=== PATIENT | female | born 1965 | race Caucasian/White ===

== ENCOUNTER 2020-09-25 14:53 | Emergency (ER) | payer OTHER, SELFPAY ==
--- NOTE | ~2020-09-25 | XR_ITS ---
XR chest 1V portable DATE: 09/25/2020 16:12 INDICATION: Syncope TECHNIQUE: Portable upright AP chest on 09/25/2020 at 1623 hours COMPARISON: None FINDINGS: Normal heart size. No hilar or mediastinal enlargement. Mild infiltrate, atelectasis or pulmonary mass density (or densities) of right mid lung. There is mild infiltrate or atelectasis at the lung bases. No pleural effusion or pulmonary vascular congestion or pneumothorax. Posterior cervical spine surgical fusion. Osteopenia. Degenerative spurring of the thoracic spine. IMPRESSION: Mild infiltrate or mass density (densities) of right midlung Mild bibasilar infiltrate or atelectasis Reviewed, dictated and finalized at location A.
[2020-09-25 15:04] VITALS: BP 108/71; PULSE 101; RESP 20; TEMP 36.7; O2SAT 90
[2020-09-25 15:44] LABS: Basophils Absolute Auto 0.05 K/mm3 (0.00-0.10); Basophils Percent Auto 0.3 % (0.0-1.0); Eosinophils Percent Auto 0.6 % (1.0-6.0); Hemoglobin 13.1 g/dL (12.0-15.0); Immature Granulocyte Absolute 0.12 K/mm3 (0.00-0.00); Immature Granulocyte Percent A 0.8 % (0.0-0.0); Lymphocytes Absolute Auto 3.74 K/mm3 (1.10-4.50); Lymphocytes Percent Auto 23.9 % (18.0-42.0); Mean Corpuscular Hemoglobin 29.3 pg (27.0-31.0); Mean Corpuscular Volume 91.7 fL (78.0-102.0); Mean Platelet Volume 9.3 fl (9.2-11.8); Monocytes Absolute Auto 1.25 K/mm3 (0.10-0.90); Neutrophils Absolute Auto 10.4 K/mm3 (1.7-7.2); Neutrophils Percent Auto 66.4 % (50.0-70.0); Platelet Count Result 290 K/mm3 (150-420); Red Blood Count 4.47 M/mm3 (4.20-5.40); Red Cell Distribution Width 13.2 % (11.6-14.4); White Blood Count 15.7 K/mm3 (4.8-10.8)
[2020-09-25] MEDS: KETOROLAC 30 MG/ML VIAL (*BKC) IV PUSH (15:45)
[2020-09-25 15:53] LABS: Add Urine Microscopic? YES; Appearance Urine Clear (Clear); Bilirubin Urine Negative (Negative); Blood Urine Negative (Negative); Color Urine Yellow (Yellow); Glucose Urine UA Negative (Negative); Ketones Urine Negative (Negative); Leukocyte Esterase Ur Negative LEU/UL (Negative); Nitrate Urine Negative (Negative); Protein Urine Trace (Negative); Specific Grav Ur >= 1.030 (1.010-1.020); Urobilinogen Urine 0.2 mg/dL (0.2-1.0)
[2020-09-25 15:56] LABS: Bacteria Urine None seen /hpf; Mucus Urine Few /lpf; RBC Urine None seen /hpf (0-2); Squamous Epithelial Cell Urine Rare /hpf (Few); WBC Urine None seen /hpf (0-3)
[2020-09-25 15:59] LABS: Alanine Aminotransferase 25 U/L (14-59); Albumin Level 2.7 g/dL (3.4-5.0); Alkaline Phosphatase 115 U/L (46-116); Anion Gap 8 mmol/L (8-16); Aspartate Amino Transferase 12 U/L (15-37); Bilirubin,Total 0.2 mg/dL (0.00-1.00); Blood Urea Nitrogen 11 mg/dL (7-18); Calcium 8.6 mg/dL (8.5-10.1); Carbon Dioxide 30 mmol/L (21-32); Chloride 103 mmol/L (98-108); Estimated CRCL calculation 69 ml/min; Estimated Glomerular Filt Rate 49; Glucose 184 mg/dL (70-99); Osmolality Calculated 296 mOsm/kg (285-295); Potassium 3.4 mmol/L (3.5-5.1); Sodium 141 mmol/L (136-145); Total Protein 6.5 g/dL (6.4-8.2)
[2020-09-25 16:07] LABS: NT Pro B Type Natriuretic Pept 83 pg/mL (0-125); Troponin I 5.4 ng/L (0.00-60.4)
[2020-09-25 16:55] VITALS: PULSE 96; RESP 20; O2SAT 90
[2020-09-25] MEDS: IPRATROPIUM 0.5 MG/ALBUTEROL SULFATE 2.5 MG AMPUL.NEB 3 ML INHALATION (16:55)
[2020-09-25 17:05] VITALS: PULSE 99; RESP 20; O2SAT 92
--- NOTE | 2020-09-25 17:44 | ED.WEAKNESS ---
HPI - Weakness General Chief complaint: Weakness Stated complaint: ambualnce Time Seen by Provider: 09/25/20 15:15 Source: patient Mode of arrival: ambulatory Limitations: no limitations History of Present Illness HPI Narrative: Patient comes in stating she has felt weak, this has been ongoing for several days, but worse today. She rates this as moderate weakness, ongoing, not improved by rest. Complaint: generalized weakness Onset (ago): day(s) Duration: constant Location: generalized Migration: none Severity: moderate Relieving factors: none Exacerbating factors: movement Associated symptoms: denies other symptoms and other (denies feever and chills, has had minimal dry cough) Related Data Allergies Allergy/AdvReac Type Severity Reaction Status Date / Time No Known Allergies Allergy Verified 09/25/20 17:48 Review of Systems Constitutional: Constitutional: Reports no additional constitutional complaints Eyes: Eyes: Reports no additional eye complaints ENT: Reports system reviewed and no additional complaints, except as documented Cardiovascular: Cardiovascular: Reports no additional cardiovascular complaints Respiratory: Respiratory: Reports dyspnea Gastrointestinal: Gastrointestinal: Reports no additional gastrointestinal complaints Genitourinary: Genitourinary: Reports no additional female genitourinary complaints Musculoskeletal: Musculoskeletal: Reports no additional musculoskeletal complaints Integumentary/Breasts: Skin/Breast: Reports system reviewed and no additional complaints, except as docu Neurologic: Reports system reviewed and no additional complaints, except as documented Psychiatric: Psychiatric: Reports no additional psychiatric complaints Endocrine: Endocrine: Reports no additional endocrine complaints Hematologic/Lymphatic: Hematologic/Lymphatic: Reports no additional hematologic/lymphatic complaints Allergic/Immunologic: Allergic/Immunologic: Reports no additional allergic/immunologic complaints [facility] Past Medical History Medical History (Updated 09/26/20 @ 00:02 by Otoniel Rangel MD) Cervical vertebral fusion COPD (chronic obstructive pulmonary disease) Fibromyalgia HTN (hypertension) Vitamin D deficiency Family History Family History (Updated 09/26/20 @ 00:02 by Otoniel Rangel MD) Other Family history non-contributory Social History Social History (Updated 09/26/20 @ 00:03 by Otoniel Rangel MD) Gender identity (if verbalized by the patient): Female Sexual Orientation (if Verbalized by the Patient): Straight or Heterosexual Exam Const: General: no acute distress Orientation/consciousness: patient oriented x3 Limitations: other limitations HENMT: Head: normal to inspection Ears: external ears normal General nose exam: Normal external nose present Mouth: Yes Normal oral and palatal mucosa present Throat: posterior oropharynx normal Other: poor dental health Eyes: Conjunctivae: conjunctivae normal Neck: Neck: normal visual inspection Chest: Chest palpation & inspection: normal inspection of the chest Resp: Effort & Inspection: normal respiratory effort Auscultation: clear to auscultation bilaterally Cardio: Rate: regular rate Rhythm: regular rhythm GI: GI Palp: Yes Soft to palpation (nontender) Back/Spine/Pelvis: Back: no CVA tenderness Skin: General skin exam: normal color Neuro: General: patient oriented x3 and moves all extremities Extrem: General: normal to inspection Psych: Appearance: grossly normal Mental Status: mental status grossly normal Thought content: Yes Normal thought content present Course Course Emergency Course: labs and CXR were reviewed. She was found to have a pneumonia and was given Rocephin 1 gram IV for this She was discharged with levofloxacin 500mg one daily for 7 days. Vital Signs Vital signs: Vital Signs Temperature 36.7 C 09/25/20 15:04 Pulse Rate 101 H 09/25/20 15:04 Respiratory Rate 20
[2020-09-25] MEDS: cefTRIAXone 1 GM VIAL IM (17:57)
[2020-09-25 18:02] VITALS: BP 111/73; PULSE 93; RESP 20; TEMP 36.8; O2SAT 96
== END 2020-09-25 18:10 | disposition home or self-care (01) ==
PROVIDERS: Emergency Provider Emergency Medicine
DX: J18.9 Pneumonia, unspecified organism (principal); R06.00 Dyspnea, unspecified
CPT/HCPCS: 36415; 51701; 71045; 80053; 81001; 83880; 84484; 85025; 94640; 96372; 96374; 99283; 99284; J0696; J1885

== ENCOUNTER 2020-11-12 23:32 | Emergency (ER) | payer OTHER, SELFPAY ==
--- NOTE | ~2020-11-12 | XR_ITS ---
XR chest 1V portable DATE: 11/13/2020 00:21 INDICATION: Cough, wheezing TECHNIQUE: Portable upright AP chest on 11/13/2020 at 0030 hours COMPARISON: 09/25/2020 portable AP chest FINDINGS: Normal heart size. No hilar or mediastinal enlargement. No pulmonary infiltrate or consolid ation, pleural effusion or pulmonary vascular congestion or pneumothorax. Postoperative change from posterior cervical spine surgical fusion. IMPRESSION: No active cardiopulmonary disease Reviewed, dictated and finalized at location A.
[2020-11-12 23:32] VITALS: BP 114/101; PULSE 102; RESP 22; TEMP 36.6; O2SAT 99
--- NOTE | 2020-11-12 23:44 | ED.SOB ---
HPI - SOB/Dyspnea General Chief Complaint: Upper Respiratory Infection Stated Complaint: COUGH Time Seen by Provider: 11/12/20 23:35 Source: patient Mode of arrival: ambulatory Limitations: no limitations History of Present Illness HPI Narrative: 55-year-old woman with a history of COPD and type 2 diabetes comes in today complaining of cough and increasing shortness of breath over the last 3 days. Patient states that she has had no sputum production, chest pain, fever, vomiting, diarrhea, or sick contacts. records show she was diagnosed with pneumonia on September 25. She took a double dose of albuterol by nebulizer 1 hour prior to admission. MD elicited complaint: shortness of breath and cough Pertinent past history: COPD Onset (ago): day(s) (3) Timing: constant and progressively worsening Severity: moderate Exacerbating factors: lying flat Relieving factors: nothing Known history of: COPD Associated symptoms: wheezing Treatment prior to arrival: bronchodilator Related Data Home oxygen amount: none Home Medications Medication Instructions Recorded Confirmed amitriptyline 100 mg PO DAILY 11/12/20 11/12/20 aspirin 81 mg PO DAILY 11/12/20 11/12/20 atorvastatin 40 mg PO DAILY 11/12/20 11/12/20 baclofen 10 mg PO BID 11/12/20 11/12/20 budesonide-formoterol [Symbicort] 1 inh INHALATION BID 11/12/20 11/12/20 carvedilol 6.25 mg PO DAILY 11/12/20 11/12/20 famotidine 40 mg PO DAILY 11/12/20 11/12/20 gabapentin 600 mg PO BID 11/12/20 11/12/20 ipratropium-albuterol 3 ml INHALATION BID 11/12/20 11/12/20 lisinopril 20 mg PO DAILY 11/12/20 11/12/20 Allergies Allergy/AdvReac Type Severity Reaction Status Date / Time No Known Allergies Allergy Verified 09/25/20 17:48 Review of Systems Review of Systems: All systems reviewed & are unremarkable except as noted in HPI and below Constitutional: Constitutional: Denies chills, Denies fever(s) and Denies weakness Eyes: Eyes: Denies change in vision and Denies photophobia ENT: Denies dysphagia, Denies nasal congestion and Denies sore throat Cardiovascular: Cardiovascular: Denies chest pain and Denies radiating jaw, neck or arm pain Respiratory: Respiratory: Reports cough, Reports dyspnea and Reports wheezing Gastrointestinal: Gastrointestinal: Denies abdominal pain, Denies diarrhea, Denies nausea and Denies vomiting Musculoskeletal: Musculoskeletal: Denies joint swelling and Denies muscle cramps Integumentary/Breasts: Skin/Breast: Denies pruritus, Denies erythema and Denies rash Neurologic: Denies vertigo, Denies dizziness, Denies syncope, Denies focal weakness and Denies numbness Endocrine: Endocrine: Reports fatigue and Denies polydipsia Hematologic/Lymphatic: Hematologic/Lymphatic: Denies easy bleeding and Denies easy bruising Allergic/Immunologic: Allergic/Immunologic: Reports lip swelling and Reports throat swelling PMFSH Past Medical History Medical History Cervical vertebral fusion COPD (chronic obstructive pulmonary disease) Fibromyalgia HTN (hypertension) Vitamin D deficiency Family History Family History (Updated 09/26/20 @ 00:02 by Otoniel Rangel MD) Other Family history non-contributory Social History Social History Gender identity (if verbalized by the patient): Female Exam Const: General: healthy appearing, no acute distress and alert Orientation/consciousness: patient oriented x3 Limitations: no limitations HENMT: Head: normal to inspection Ears: external ears normal, TM's normal bilaterally and EAC's normal General nose exam: Normal nares present Face and sinus: normal facial exam Mouth: Yes moist mucous membranes Other: Diffuse pharyngeal erythema without mass, exudate or swelling. Eyes: Conjunctivae: conjunctivae normal Pupils: Equal, round and reactive pupils present Resp: Effort & Inspection: normal respiratory effort Au
[2020-11-13 00:51] LABS: SARS-CoV-2 Ag Negative (Negative)
[2020-11-13 01:00] VITALS: PULSE 92; RESP 20; O2SAT 98
[2020-11-13] MEDS: methylPREDNISolone ACETATE 40 MG/ML VIAL 80 MG IM (01:00)
[2020-11-13] MEDS: ALBUTEROL SULFATE NEB 2.5 MG/3 ML INH INHALATION (01:00)
[2020-11-13] MEDS: IPRATROPIUM 0.5 MG/ALBUTEROL SULFATE 2.5 MG AMPUL.NEB 3 ML INHALATION (01:07)
[2020-11-13 01:10] VITALS: PULSE 99; RESP 20; O2SAT 98
[2020-11-13 01:30] VITALS: BP 148/91; PULSE 94; PULSE 97; RESP 20; TEMP 36.3; O2SAT 97; O2SAT 99
== END 2020-11-13 01:34 | disposition home or self-care (01) ==
PROVIDERS: Emergency Provider Emergency Medicine
DX: J44.1 Chronic obstructive pulmonary disease with (acute) exacerbation (principal)
CPT/HCPCS: 71045; 87426; 94640; 96372; 99283; C9803; J1030

== ENCOUNTER 2020-12-26 15:45 | Emergency (ER) | payer OTHER, SELFPAY ==
[2020-12-26 16:47] VITALS: BP 105/66; PULSE 96; RESP 20; TEMP 36.7; O2SAT 96
--- NOTE | 2020-12-26 17:23 | ED.BACK ---
HPI - Back Pain/Injury General Chief Complaint: Back Pain/Injury Stated Complaint: PAIN HAD SUEGERY LAST SATURDAY Source: patient Mode of arrival: ambulatory History of Present Illness HPI Narrative: this is a 55-year-old female with a past medical history of recent lumbar spinal surgery and has been evaluated and had a drain but currently there is no drainage no erythema no warmth or tenderness to the lumbar area but the patient is having a right upper subscapular pain and tightness. The patient was taking extra doses of her Vicodin and not getting much relief does have a lidocaine patch in place as well. There is no fever or chills no shortness of breath no chest pain no nausea vomiting or abdominal pain currently no low back pain no numbness or tingling radiating down her lower extremities no saddle paresthesias. MD elicited complaint: back pain Pertinent past history: prior back pain Onset (ago): day(s) Timing: constant Severity: moderate Pain scale (0-10): 8 Similar Symptoms Previously: Yes Quality: spasming Location: thoracic spine Radiation: none Exacerbating factors: none Relieving factors: none Related Data Home Medications Medication Instructions Recorded Confirmed amitriptyline 100 mg PO DAILY 11/12/20 11/12/20 aspirin 81 mg PO DAILY 11/12/20 11/12/20 atorvastatin 40 mg PO DAILY 11/12/20 11/12/20 baclofen 10 mg PO BID 11/12/20 11/12/20 budesonide-formoterol [Symbicort] 1 inh INHALATION BID 11/12/20 11/12/20 carvedilol 6.25 mg PO DAILY 11/12/20 11/12/20 famotidine 40 mg PO DAILY 11/12/20 11/12/20 gabapentin 600 mg PO BID 11/12/20 11/12/20 ipratropium-albuterol 3 ml INHALATION BID 11/12/20 11/12/20 lisinopril 20 mg PO DAILY 11/12/20 11/12/20 Allergies Allergy/AdvReac Type Severity Reaction Status Date / Time doxycycline Allergy Unknown Verified 12/26/20 16:55 Penicillins Allergy Unknown Verified 12/26/20 16:55 Review of Systems Review of Systems: All systems reviewed & are unremarkable except as noted in HPI and below PMFSH Past Medical History Medical History Cervical vertebral fusion COPD (chronic obstructive pulmonary disease) Fibromyalgia HTN (hypertension) Vitamin D deficiency Family History Family History Other Family history non-contributory Social History Social History Gender identity (if verbalized by the patient): Female Sexual Orientation (if Verbalized by the Patient): Straight or Heterosexual Exam Const: General: no acute distress and alert Orientation/consciousness: patient oriented x3 HENMT: Head: normal to inspection Eyes: Conjunctivae: conjunctivae normal Pupils: Equal, round and reactive pupils present EOM: EOMs intact bilaterally Neck: Neck: normal visual inspection Chest: Chest palpation & inspection: normal inspection of the chest Resp: Effort & Inspection: normal respiratory effort Auscultation: clear to auscultation bilaterally GI: Auscultation: normal bowel sounds : General: Yes no CVA tenderness Skin: General skin exam: normal color Rashes: no rashes Neuro: General: patient oriented x3, moves all extremities, no meningeal signs and no focal motor deficits Extrem: Other: Right subscapular pain and tenderness with muscle tightness with palpation Psych: Mental Status: mental status grossly normal Affect: normal affect Course Course Emergency Course: patient currently resting comfortably pain level is improved with IM Toradol advised to go and follow-up with primary care physician. Vital Signs Vital signs: Vital Signs Temperature 36.7 C 12/26/20 16:47 Pulse Rate 96 12/26/20 16:47 Respiratory Rate 20 12/26/20 16:47 Blood Pressure 105/66 12/26/20 16:47 Pulse Oximetry 96 12/26/20 16:47 Temperature 36.7 C 12/26/20 16:47 Pulse Rate 96 12/26/20 16:4
[2020-12-26 17:41] VITALS: BP 114/66; PULSE 94; RESP 20; TEMP 36.7; O2SAT 98
== END 2020-12-26 17:46 | disposition home or self-care (01) ==
PROVIDERS: Emergency Provider Emergency Medicine
DX: M62.838 Other muscle spasm (principal)
CPT/HCPCS: 99281; 99282